=== PATIENT | female | born 1960 | race Caucasian/White ===

== ENCOUNTER → 2017-04-07 | Outpatient (CLI) | payer OTHER ==
[~2017-04-07] VITALS: Ht 157.5 cm; Wt 81.6 kg
[~2017-04-07] MED LIST: LEXA1TAB PO; LIDOCAINE 2% INJ 100 MG/5 ML SDV (FOR ANES.) As Ordered ONE; NS 1,000 ML IV ONE; PROPOFOL 500 MG/50 ML VIAL As Ordered ONE
--- NOTE | 2017-04-07 13:48 | ROOR ---
Patient Name: Ismael Lin Procedure Date: 04/07/2017 1:22 PM Date of : 1960 Age: 56 Room: [facility] Gender: Female Note Status: Finalized Procedure: Colonoscopy to Cecum Indications: Screening for colorectal malignant neoplasm Providers: Robert Sultana MD Referring MD: DARLEEN PARKER MD Requesting Provider: Medicines: Monitored Anesthesia Care Complications: No immediate complications. Procedure: Pre-Anesthesia Assessment: - The heart rate, respiratory rate, oxygen saturations, blood pressure, adequacy of pulmonary ventilation, and response to care were monitored throughout the procedure. The Colonoscope was introduced through the anus and advanced to the cecum, identified by appendiceal orifice and ileocecal valve. The colonoscopy was performed without difficulty. The patient tolerated the procedure well. The quality of the bowel preparation was excellent. Findings: The perianal and digital rectal examinations were normal. Non-bleeding internal hemorrhoids were found during retroflexion. The hemorrhoids were small and Grade I (internal hemorrhoids that do not prolapse). Scattered small-mouthed diverticula were found in the recto-sigmoid colon, sigmoid colon and descending colon. The exam was otherwise without abnormality on direct and retroflexion views. Impression: - Non-bleeding internal hemorrhoids. - Diverticulosis in the recto-sigmoid colon, in the sigmoid colon and in the descending colon. - The examination was otherwise normal on direct and retroflexion views. - No specimens collected. - The exam was otherwise normal to the cecum. Recommendation: - Patient has a contact number available for emergencies. The signs and symptoms of potential delayed complications were discussed with the patient. Return to normal activities tomorrow. Written discharge instructions were provided to the patient. - High fiber diet. - Discharge patient to home. - Continue present medications. - Repeat colonoscopy in 10 years for screening purposes. - Return to referring physician. - The findings and recommendations were discussed with the patient's family. Robert Sultana MD Robert Sultana MD 04/07/2017 1:47:59 PM This report has been signed electronically. Number of Addenda: 0 Note Initiated On: 04/07/2017 1:22 PM Estimated Blood Loss: Estimated blood loss: none.
[2017-04-07 14:12] VITALS: BP 134/81
== END | disposition home or self-care (01) ==
LOC: M OPP 12:49
PROVIDERS: ATTEND Internal Medicine Gastroenterology
DX: Z12.11 Encounter for screening for malignant neoplasm of colon (principal); K64.0 First degree hemorrhoids; K57.30 Diverticulosis of large intestine without perforation or abscess without bleeding; R12 Heartburn; F41.9 Anxiety disorder, unspecified; K46.9 Unspecified abdominal hernia without obstruction or gangrene; Z78.0 Asymptomatic menopausal state; Z88.8 Allergy status to other drugs, medicaments and biological substances; Z79.899 Other long term (current) drug therapy; Z80.0 Family history of malignant neoplasm of digestive organs

== ENCOUNTER → 2022-03-22 | Outpatient (REF) | payer OTHER ==
[~2022-03-22] MED LIST changes: -LIDOCAINE 2% INJ 100 MG/5 ML SDV (FOR ANES.) As Ordered ONE; -NS 1,000 ML IV ONE; -PROPOFOL 500 MG/50 ML VIAL As Ordered ONE
== END ==
LOC: M LAB REF 16:30
PROVIDERS: ATTEND Physician Assistant Medical
DX: R05.9 Cough, unspecified (principal)

== ENCOUNTER → 2022-10-20 | Outpatient (CLI) | payer OTHER ==
[~2022-10-20] MED LIST changes: +CETI-24 PO; +CYPR4TA PO; +DICY20TA20 PO; +FERR325T3 PO; +HYDR-643 PO; +IBUP-1022 PO; +LEVO25TA5 PO; +ONDA4TAB6 PO
== END ==
LOC: M LABSMTC 09:13
PROVIDERS: ATTEND Anesthesiology
DX: Z01.812 Encounter for preprocedural laboratory examination (principal); Z11.52 Encounter for screening for COVID-19

== ENCOUNTER 2022-10-23 10:53 | Day surgery (SDC) | payer OTHER ==
[~2022-10-23] VITALS: Ht 157.5 cm; Wt 84.8 kg
[~2022-10-23 10:53] MED LIST changes: +NS 1,000 ML IV ONE; +propofoL 200 MG/20 ML VIAL As Ordered ONE
[2022-10-23] MEDS ORDERED: fentaNYL 100 MCG/2 ML INJECTION As Ordered ONE (13:07)
[2022-10-23 13:58] VITALS: BP 133/82
== END 2022-10-23 14:02 | disposition home or self-care (01) ==
LOC: M OPP 10:53
PROVIDERS: ATTEND Internal Medicine Gastroenterology
DX: D50.9 Iron deficiency anemia, unspecified (principal); K64.0 First degree hemorrhoids; K57.30 Diverticulosis of large intestine without perforation or abscess without bleeding; K44.9 Diaphragmatic hernia without obstruction or gangrene; F32.A Depression, unspecified; Z88.8 Allergy status to other drugs, medicaments and biological substances; Z79.899 Other long term (current) drug therapy
CPT/HCPCS: 43239; 45378; 88305; J3010

== ENCOUNTER → 2025-02-02 | Outpatient (POV) | payer MEDICARE, OTHER ==
[~2025-02-02] VITALS: Ht 157.5 cm; Wt 72.7 kg
[~2025-02-02] MED LIST changes: +ACET500P3 PO; +ASPE4PAD TOP; +CEFD1CAP9; -CYPR4TA PO; +CYPR4TAB36 PO; +HYDR-3713 PO; +HYDR25OI; +MIRA3350 PO; -NS 1,000 ML IV ONE; +ONDA-282 PO; -ONDA4TAB6 PO; +PANT40TA29; +TRAM50TA2 PO; +TYML3120 SC; -propofoL 200 MG/20 ML VIAL As Ordered ONE
[2025-02-02 13:15] VITALS: BP 146/98; O2SAT 98
== END ==
LOC: M IRPOV 13:09
PROVIDERS: ATTEND Radiology Diagnostic Radiology
DX: M80.08XA Age-related osteoporosis with current pathological fracture, vertebra(e), initial encounter for fracture (principal); M51.360 Other intervertebral disc degeneration, lumbar region with discogenic back pain only; G89.29 Other chronic pain; Z79.891 Long term (current) use of opiate analgesic; Z79.899 Other long term (current) drug therapy; Z80.0 Family history of malignant neoplasm of digestive organs; Z88.8 Allergy status to other drugs, medicaments and biological substances

== ENCOUNTER 2025-02-03 15:41 | Emergency (ER) | payer MEDICARE, OTHER ==
[~2025-02-03] VITALS: Ht 157.5 cm; Wt 81.4 kg
[~2025-02-03 15:41] MED LIST changes: -ASPE4PAD TOP; -HYDR-3713 PO; -MIRA3350 PO; -TYML3120 SC
[2025-02-03] MEDS ORDERED: TYML3120 SC (15:56)
[2025-02-03 17:04] VITALS: BP 163/86; TEMP 98.2; O2SAT 96
[2025-02-03] MEDS ORDERED: HYDR-3713 PO (18:16)
[2025-02-03] MEDS ORDERED: MIRA3350 PO (18:16)
[2025-02-03] MEDS ORDERED: ASPE4PAD TOP (18:16)
[2025-02-03] MEDS ORDERED: ONDA-282 PO (18:16)
== END 2025-02-03 18:33 | disposition home or self-care (01) ==
LOC: M ED 15:41
DX: S32.050A Wedge compression fracture of fifth lumbar vertebra, initial encounter for closed fracture (principal); M54.50 Low back pain, unspecified; X58.XXXA Exposure to other specified factors, initial encounter; K21.9 Gastro-esophageal reflux disease without esophagitis; Z79.83 Long term (current) use of bisphosphonates; Z79.1 Long term (current) use of non-steroidal anti-inflammatories (NSAID); Z79.899 Other long term (current) drug therapy; Z88.8 Allergy status to other drugs, medicaments and biological substances; Y92.9 Unspecified place or not applicable; Y93.9 Activity, unspecified; Y99.9 Unspecified external cause status

== ENCOUNTER → 2025-06-08 | Outpatient (CLI) | payer MEDICARE, OTHER ==
[~2025-06-08] MED LIST changes: +ASPE4PAD TOP; +CYAN500T14 PO; +FERR325T82 PO; +HYDR-3713 PO; +MIRA3350 PO; +OSTETAB2 PO; +OYST1TAB PO; +TYML3120 SC
== END ==
LOC: M RAD 13:43
PROVIDERS: ATTEND Radiology Diagnostic Radiology
DX: M89.38 Hypertrophy of bone, other site (principal)

== ENCOUNTER → 2025-06-08 | Outpatient (POV) | payer MEDICARE, OTHER ==
[~2025-06-08] VITALS: Ht 157.5 cm; Wt 77.3 kg
[2025-06-08 14:30] VITALS: BP 156/76; O2SAT 98
== END ==
LOC: M IRPOV 13:36
PROVIDERS: ATTEND Registered Nurse School
DX: M80.08XA Age-related osteoporosis with current pathological fracture, vertebra(e), initial encounter for fracture (principal); M89.38 Hypertrophy of bone, other site; D64.9 Anemia, unspecified; E03.9 Hypothyroidism, unspecified; Z79.891 Long term (current) use of opiate analgesic; Z88.8 Allergy status to other drugs, medicaments and biological substances; Z97.8 Presence of other specified devices
CPT/HCPCS: 72110; G0463

== ENCOUNTER → 2025-06-14 | Outpatient (CLI) | payer MEDICARE, OTHER ==
[2025-06-14 14:43] VITALS: TEMP 97.7
[2025-06-14] MEDS: NS (Normal Saline) 0.9% 1,000 ML IV SCH (15:53)
[2025-06-14] MEDS: MIDAZOLAM INJ 2 MG/2 ML VIAL IV PRN (15:53)
[2025-06-14] MEDS: SODIUM CHLORIDE 0.9% 1000 ML XX SCH (15:53)
[2025-06-14] MEDS: LIDOCAINE 1% MDV 20 ML VIAL SC SCH (16:38)
[2025-06-14] MEDS: ISOVUE-300 61% 100 ML VIAL IV SCH (16:38)
[2025-06-14 17:00] VITALS: BP 156/75; O2SAT 96
== END ==
LOC: M IRPRO 14:30
PROVIDERS: ATTEND Radiology Diagnostic Radiology
DX: M54.50 Low back pain, unspecified (principal); M80.08XA Age-related osteoporosis with current pathological fracture, vertebra(e), initial encounter for fracture; M47.816 Spondylosis without myelopathy or radiculopathy, lumbar region
CPT/HCPCS: 64493; 64494; J0665; J2250; J2919; Q9967